=== PATIENT | male | born 1980 | race Caucasian/White ===

== ENCOUNTER 2021-08-31 19:56 | Emergency (ER) | payer BC ==
[2021-08-31] MEDS ORDERED: Boostrix 0.5 ML (Tdap) VIAL ONE (20:48)
[2021-08-31] MEDS ORDERED: Cephalexin 250 MG CAP ONE (21:04)
== END 2021-08-31 21:13 | disposition home or self-care (01) ==
LOC: MADERS 19:56
DX: S93.402A Sprain of unspecified ligament of left ankle, initial encounter (principal); S80.212A Abrasion, left knee, initial encounter; L03.011 Cellulitis of right finger; Z23 Encounter for immunization; W55.22XA Struck by cow, initial encounter
CPT/HCPCS: 90471; 90715